=== PATIENT | male | born 1930 | race Caucasian/White ===

== ENCOUNTER 2017-03-15 21:02 | Emergency (ER) | payer MEDICARE, MEDICAID ==
[~2017-03-15] VITALS: Ht 172.7 cm; Wt 53.2 kg
[~2017-03-15 21:02] MED LIST: HYDR-4150 PO; PRE20 PO
[2017-03-15 21:07] VITALS: BP 129/69; PULSE 79; RESP 16; O2SAT 95
--- NOTE | 2017-03-15 21:46 | ED.REPORT ---
HPI-Chest Pain 40 and Over Date of Service Mar 15, 2017 ED Provider: Dr. Darrel Farmer MD An 86 year old male with a history of hydronephrosis s/p left nephrectomy (1958 ) presents to the ED with chest pain that began at 1000 this morning. The pain in his chest is exacerbated by inspiration and deep breath. His pain does not radiate anywhere outside of his chest. He began to experience significant neck pain this morning and took 1 hydrocodone for the pain with little relief. The patient also endorses recent chills, fatigue and generalized weakness that are worse than his baseline. Patient reports experiencing right hand pain secondary to a skin tear that occurred last week and is currently taking cephalexin. He denies any recent nausea, vomiting, cough, fever, extremity swelling, or one- sided weakness/numbness. Nursing Notes Stated Complaint: CHEST PAIN AND RIGHT HAND PAIN Chief Complaint: Chest Pain Nursing Notes Reviewed: Yes Allergies: Coded Allergies: prednisone (Verified Allergy, Mild, BODY ACHES, 03/15/17) atorvastatin (Verified Adverse Reaction, Unknown, body aches, 01/12/15) Scheduled Famotidine (Pepcid) 20 Mg Tablet 20 MG PO BID Prednisone (PredniSONE) 20 Mg Tablet 20 MG PO DAILY 3 tabs x4days; 2 tabs x 4days, 1 tab x 4days; 0.5 tabs x4days Scheduled PRN Hydrocodone/Acetaminophen ([place] 5-325 Tablet) 1 Each Tablet 1 EACH PO Q6 PRN PRN For Pain Naproxen (Naprosyn) 500 Mg Tablet 500 MG PO BID PRN PRN For Pain General Time Seen by MD: 21:45 Chief Complaint Chest pain Hx Obtained From: Patient Arrived By: Walk-in Sudden in Onset?: No Onset Occurred: 9 - 12 hours ago Symptom Duration: Since onset Location: : Chest left: Chest right Quality: Painful Radiation: : Does not radiate Severity: Current: Mild Severity: Maximum: Moderate Associated with: Reports: Fatigue, Weakness, Denies: Cough, non-productive, Cough, productive, Cough, with hemoptysis, Fever, Nausea, Numbness/Tingling, Vomiting Pertinent Negative: Pt denies other symptoms Exacerbated by: Deep breath Recent Healthcare: No recent doctor visit, No recent hospitalization Risk Factors )( CAD Risk Stratification Risk factors reviewed )( TAD Risk Stratification Risk factors reviewed )( PE Risk Stratification Risk factors reviewed Past Medical History Past Medical History Chronic hip pain Hydronephrosis Past Surgical History Left kidney removed in 1954 Toe surgeries Family History His father was a heavy smoker and at 53. Mother at 93. Smoking History Former Smoker Social History Alcohol Use: 1-3 per week Drug Use: Denies drug use Other Social History: Good social support, Lives alone, Local resident Ambulatory Status Independent Review of Systems Constitutional: Reports: Chills, Fatigue, Weakness - generalized Cardiovascular: Reports: Chest pain GI: Denies: Nausea, Vomiting Musculoskeletal: Reports: Neck pain, Denies: Extremity swelling Neurologic: Denies: Focal weakness Complete sys rev & neg: except as marked. Physical Exam Initial Vital Signs Vital Signs (First) Date Time Temp Pulse Resp B/P Pulse Ox O2 Delivery O2 Flow Rate FiO2 03/15/17 21:07 36.7 79 16 129/69 95 Room Air 03/16/17 00:05 2 Initial VS: Reviewed Head / Eyes: Atraumatic, Normocephalic, PERRL Neurologic: Alert, Oriented, Nonfocal Psychiatric: Mood/affect normal, Behavior normal, Normal thought content General/Constitutional: Awake, Alert, No acute distress Respiratory / Chest: Atraumatic, Breath sounds = bilat, No respiratory distress RESPIRATORY: Audible rub present; otherwise clear lung sounds Cardiovascular: Heart rate NL, Regular rhythm, Heart sounds NL, Cap refill not delayed, Peripheral circulation NL, Pulses = bilaterally Heart Sounds / Murmur: Positive: Rub present (Audible rub with deep breath over reported area of pain) Abdomen: Atraumatic, Soft, Non-tender Neck: Atraumatic, Supple, No swelling, No midline vertebral tend, No JVD Neck / Muscle Tenderness: Positive: Midline tenderness mid (Left sided tenderness over the trapezius ) Lower Extremity / Pelvis / MS: Atraumatic, Inspection NL, No swelling (no synovitis joint swelling), Neurologic intact, Vascular intact, No edema Skin: Atraumatic, Color NL, Dry SKIN: Cool upper extremities bilaterally Upper Extremity / MS: Atraumatic, Inspection NL, No swelling, Neurologic intact , Vascular intact Interpretation & Diagnostics Lab Results Interpretation Result Diagram: 03/15/17220503/15/17 2206 Test 03/15/17 22:06 03/15/17 22:10 03/15/17 22:30 03/15/17 23:42 White Blood Count 7.9th/mm3 (3.8-10.1) Red Blood Count 4.38mil/mm3 (4.40-5.80) Hemoglobin 13.2g/dL (13.8-17.2) Hematocrit 40.1% (41.0-50.0) Mean Corpuscular Volume 91.6fL (81-100) Mean Corpuscular Hemoglobin 30.1pg (27.0-35.0) Mean Corpuscular Hemoglobin Concent 32.9% (32.0-37.0) Red Cell Distribution Width 13.9% (12.3-15.4) Platelet Count 184bil/L (150-400) Neutrophils (%) (Auto) 72.6% (40-74) Lymphocytes (%) (Auto) 13.5% (14-46) Monocytes (%) (Auto) 12.0% (4-12) Eosinophils (%) (Auto) 1.5% (0-5) Basophils (%) (Auto) 0.3% (0-3) Erythrocyte Sedimentation Rate 4mm/hr (0-30) D-Dimer < 0.50mg/L FEU (<0.50) Sodium Level 139mEq/L (134-144) Potassium Level 4.2mEq/L (3.5-5.2) Chloride Level 99mEq/L (97-108) Carbon Dioxide Level 25mmol/L (18-29) Blood Urea Nitrogen 20mg/dL (8-27) Creatinine 1.29mg/dL (0.76-1.27) Estimat Glomerular Filtration Rate 56mL/min (>59) Glucose Level 86mg/dL (60-99) Calcium Level 9.5mg/dL (8.5-10.1) Total Bilirubin 0.7mg/dL (0.0-1.2) Aspartate Amino Transf (AST/SGOT) 23U/L (0-50) Alanine Aminotransferase (ALT/SGPT) 13U/L (0-44) Alkaline Phosphatase 59U/L (25-160) Total Protein 6.9g/dL (6.4-8.4) Albumin 4.4g/dL (3.4-5.0) Hold Noble Top Tube Received (Received) Magnesium Level 1.9mg/dL (1.6-2.6) Pro-B-Type Natriuretic Peptide 274.2pg/mL (0-486) Urine Color Yellow (YELLOW) Urine Appearance Clear (CLEAR,HAZY) Urine pH 5.5 (5.0-8.0) Urine Specific [place] 1.015 (1.003-1.035) Urine Protein Negativemg/dL (NEG,TRACE) Urine Glucose (UA) Negativemg/dL (NEGATIVE) Urine Ketones Negativemg/dL (NEGATIVE) Urine Occult Blood Negative (NEGATIVE) Urine Nitrite Negative (NEGATIVE) Urine Bilirubin Negative (NEGATIVE) Urine Urobilinogen Normalmg/dL (NORMAL) Urine Leukocyte Esterase Trace (NEGATIVE) Urine RBC 0-2/hpf (0-2) Urine WBC 0-5/hpf (0-5) Urine Epithelial Cells Few/hpf (NONE-MOD) Urine Crystals None seen (NONE SEEN) Urine Bacteria None/hpf (NONE-FEW) Urine Hyaline Casts None/lpf (NONE) Urine Granular Casts None seen (NONE SEEN) Urine Waxy Casts None seen (NONE SEEN) Urine Red Blood Cell Casts None seen (NONE SEEN) Urine White Blood Cell Casts None seen (NONE SEEN) Urine Mucus Present (None Seen) Urine Trichomonas None seen (NONE SEEN) Urine Yeast None (NONE SEEN) Urinalysis Comment None Urine Culture Reflexed Indicated Troponin T 0.010ug/L (0.0-0.011) Point of Care Testing: Troponin normal ECG Interpretation ECG Interpretation: Sinus Rhythm Rate 73 RBBB When compared to prior (01/12/2015) - bradycardia has now resovled Time: 21:39 Interpreted by: ED physician X-Ray Chest Interpretation Chest Xray Interpretation: IMPRESSION: No acute cardiopulmonary findings. Dictated by: Haleigh Gregg M.D. on 03/15/2017 at 22:06 View: Portable Interpretation / Wet Read by: Interpret - Radiologist Re-Eval/Medical Decision Med Decision/Clinical Course 86-year-old with pleuritic chest pain, and an audible pleural rub on exam. X-rays unremarkable, EKG nonacute and unchanged. Troponin negative 2. D-dimer negative. Unlikely pulmonary embolus unlikely DC unlikely cardiac in character. No pneumonia or other explanation. Appears to be a simple viral pleuritis improved already with IV Toradol here. Home with Naprosyn and Pepcid. Follow up with PCP. Return if worse. Time of Eval: 01:29 Patient Status: Condition improved, Pain improved Re-Evaluation/Progress Note: Patient is informed of his reassuring lab work, EKG and chest X-ray. All questions about his results are discussed. Family understands and agrees with the plan to discharge with follow up. Counseled Regarding: Diagnosis, Lab results, Need for follow-up, When/why to return to ED Discharge & Departure Primary Impression: Pleurisy Additional Impression: Non-cardiac chest pain Disposition: Home Discharge Condition All VS Reviewed: Yes Condition: Stable Patient Instructions: Pleurisy (ED) Additional Instructions: There is no evidence of cardiac disease at this time. There was an audible rub with your breathing that suggests an irritation of the lining of the lung. There was no evidence of clot in your blood vessels with a negative d-dimer. Your cardiac enzymes are negative twice. With your doctor in the office. Begin Naprosyn twice daily for the next 5-10 days. Always take Naprosyn with food. Return if any immediate issues. Take Pepcid two tablets daily as long as you are on Naprosyn. Return for any immediate issues, particularly difficulty breathing, different or worsening chest pain, or other new symptoms of concern. Referrals: NOPCP (PCP) Scribe Attestation Portions of this note were transcribed by Lexus Pride. I, Dr. Farmer personally performed the history, physical exam and medical decision-making; I reviewed and confirmed the accuracy of the information in the transcribed note. Signed by: Felipe Carpenter, 03/16/17 0130. Darrel Farmer MD Mar 15, 2017 21:45 LEXUS PRIDE Mar 15, 2017 21:54
--- NOTE | 2017-03-15 22:08 | DRSVH ---
PROCEDURE: X-RAY CHEST ONE VIEW, PORTABLE ([id number]) INDICATIONS: CP TECHNIQUE: One view of the chest was acquired. COMPARISON: None. FINDINGS: Surgical changes and devices: None. Lungs and pleura: No pleural effusions or pneumothorax. Lungs are clear. Mediastinum: Mediastinal contours appear normal. Heart size is normal. Bones and chest wall: No suspicious bony lesions. Overlying soft tissues appear unremarkable. IMPRESSION: No acute cardiopulmonary findings. Dictated by: Haleigh Gregg M.D. on 03/15/2017 at 22:06 Approved by: Haleigh Gregg M.D. on 03/15/2017 at 22:06
[2017-03-15 22:19] LABS: BASOPHILS % (AUTO) 0.3 % (0-3); EOSINOPHILS % (AUTO) 1.5 % (0-5); Mean Corpuscular Hemoglobin 30.1 pg (27.0-35.0); Mean Corpuscular Volume 91.6 fL (81-100); NEUTROPHILS % (AUTO) 72.6 % (40-74); Platelet Count 184 bil/L (150-400)
[2017-03-15 22:42] LABS: TROPONIN T 0.01 ug/L (0.0-0.011)
[2017-03-15 22:52] LABS: Magnesium 1.9 mg/dL (1.6-2.6)
[2017-03-15 23:18] LABS: APPEARANCE,URINE CLEAR (CLEAR,HAZY); COLOR,URINE YELLOW (YELLOW); OCCULT BLOOD,URINE NEGATIVE (NEGATIVE); PH,URINE 5.5 (5.0-8.0); UROBILINOGEN,URINE NORMAL (NORMAL)
[2017-03-15] MEDS ORDERED: Ketorolac 15 mg/mL Inj IVPUSH ONE (23:20)
[2017-03-15 23:28] VITALS: BP 122/65; PULSE 69; RESP 12; O2SAT 92
[2017-03-16 00:05] VITALS: BP 107/55; PULSE 66; RESP 12; O2SAT 100
[2017-03-16] MEDS ORDERED: NAPR500T PO (01:25)
[2017-03-16] MEDS ORDERED: FAMO20T PO (01:25)
[2017-03-16 01:40] VITALS: BP 100/43; PULSE 66; RESP 16; O2SAT 96
[2017-03-17] MEDS ORDERED: NPR500T PO (07:46)
[2017-03-17] MEDS ORDERED: FAMO20TA4 PO (07:46)
== END 2017-03-16 01:42 | disposition home or self-care (01) ==
LOC: SED 21:02
DX: R09.1 Pleurisy (principal); R07.89 Other chest pain; M79.641 Pain in right hand; R53.83 Other fatigue; R53.1 Weakness; Z87.891 Personal history of nicotine dependence; Z88.8 Allergy status to other drugs, medicaments and biological substances
CPT/HCPCS: 36415; 71010; 80053; 81000; 83735; 83880; 84484; 85025; 85378; 85651; 87086; 93005; 96374; 99285; J1885

== ENCOUNTER 2017-03-16 21:47 | Inpatient (IN) | payer MEDICARE, MEDICAID ==
[~2017-03-16] VITALS: Ht 172.7 cm; Wt 55.0 kg
[~2017-03-16 21:47] MED LIST changes: +FAMO20T PO; +NAPR500T PO
[2017-03-16 21:50] VITALS: BP 135/85; PULSE 65; RESP 16; O2SAT 96
[2017-03-16] MEDS ORDERED: Ketorolac 15 mg/mL Inj IVPUSH ONE ×2 (22:15→23:20)
--- NOTE | 2017-03-16 22:16 | ED.REPORT ---
HPI-Chest Pain 40 and Over Date of Service Mar 16, 2017 ED Provider: Darrel Farmer MD The pt is a, 86 y/o male w/ a hx of hydronephrosis presenting to the ED complaining of chest pain onset 4 hours ago. He describes the pain as sharp and radiating to his L shoulder. The pt is also experiencing SOB. He was seen here in the ED last night for pleuritic chest pain. Nursing Notes Stated Complaint: CHEST PAIN Chief Complaint: Chest Pain Nursing Notes Reviewed: Yes Allergies: Coded Allergies: prednisone (Verified Allergy, Mild, BODY ACHES, 03/16/17) atorvastatin (Verified Adverse Reaction, Unknown, body aches, 03/16/17) Scheduled Famotidine (Pepcid) 20 Mg Tablet 20 MG PO BID Prednisone (PredniSONE) 20 Mg Tablet 20 MG PO DAILY 3 tabs x4days; 2 tabs x 4days, 1 tab x 4days; 0.5 tabs x4days Scheduled PRN Hydrocodone/Acetaminophen ([place] 5-325 Tablet) 1 Each Tablet 1 EACH PO Q6 PRN PRN For Pain Naproxen (Naprosyn) 500 Mg Tablet 500 MG PO BID PRN PRN For Pain General Time Seen by MD: 21:49 Chief Complaint Chest pain Hx Obtained From: Patient Arrived By: Walk-in Sudden in Onset?: Yes Onset Occurred: 1 - 4 hours ago Symptom Duration: Since onset Recent Healthcare: No recent hospitalization, Recent doctor visit Similar Sx Previous: Yes Past Medical History Past Medical History Chronic hip pain Hydronephrosis Past Surgical History Left kidney removed in 1954 Toe surgeries Family History His father was a heavy smoker and at 53. Mother at 93. Smoking History Former Smoker Social History Alcohol Use: 1-3 per week Drug Use: Denies drug use Other Social History: Good social support, Lives alone, Local resident Ambulatory Status Independent Review of Systems Respiratory: Reports: Shortness of breath Cardiovascular: Reports: Chest pain Complete sys rev & neg: except as marked. Physical Exam Initial Vital Signs Vital Signs (First) Date Time Temp Pulse Resp B/P Pulse Ox O2 Delivery O2 Flow Rate FiO2 03/16/17 21:50 36.5 65 16 135/85 96 Room Air 03/16/17 23:01 2 Initial VS: Reviewed Head / Eyes: Atraumatic, Normocephalic, PERRL Neck: Supple, Non-tender, Full range of motion Extremities: Vascular intact, Neuro intact, No swelling, No tenderness Skin: Warm, Dry, No cyanosis Neurologic: Alert, Oriented, Nonfocal Psychiatric: Mood/affect normal, Behavior normal, Normal thought content General/Constitutional: Awake, Alert Respiratory / Chest: Atraumatic, Breath sounds NL, Breath sounds = bilat, No respiratory distress, No rales, No rhonchi, No wheezing Chest Wall / Ribs: Positive: Chest tender upper L Cardiovascular: Heart rate NL, Regular rhythm, Heart sounds NL Abdomen: Atraumatic, Soft, Non-tender Interpretation & Diagnostics Lab Results Interpretation Result Diagram: 03/17/17 0515 03/16/17 2200 Test 03/16/17 22:00 03/16/17 23:17 Erythrocyte Sedimentation Rate 8mm/hr (0-30) Sodium Level 136mEq/L (134-144) Potassium Level 4.2mEq/L (3.5-5.2) Chloride Level 97mEq/L (97-108) Carbon Dioxide Level 23mmol/L (18-29) Blood Urea Nitrogen 24mg/dL (8-27) Creatinine 1.34mg/dL (0.76-1.27) Estimat Glomerular Filtration Rate 53mL/min (>59) Glucose Level 95mg/dL (60-99) Calcium Level 9.5mg/dL (8.5-10.1) Magnesium Level 1.9mg/dL (1.6-2.6) Total Bilirubin 0.7mg/dL (0.0-1.2) Aspartate Amino Transf (AST/SGOT) 21U/L (0-50) Alanine Aminotransferase (ALT/SGPT) 13U/L (0-44) Alkaline Phosphatase 68U/L (25-160) Pro-B-Type Natriuretic Peptide 531.3pg/mL (0-486) Total Protein 7.2g/dL (6.4-8.4) Albumin 4.3g/dL (3.4-5.0) Hold [place] Top Tube Received (Received) Urine Color Yellow (YELLOW) Urine Appearance Clear (CLEAR,HAZY) Urine pH 6.0 (5.0-8.0) Urine Specific [place] 1.010 (1.003-1.035) Urine Protein Negativemg/dL (NEG,TRACE) Urine Glucose (UA) Negativemg/dL (NEGATIVE) Urine Ketones Negativemg/dL (NEGATIVE) Urine Occult Blood Negative (NEGATIVE) Urine Nitrite Negative (NEGATIVE) Urine Bilirubin Negative (NEGATIVE) Urine Urobilinogen Normalmg/dL (NORMAL) Urine Leukocyte Esterase Negative (NEGATIVE) Urine RBC 0-2/hpf (0-2) Urine WBC 0-5/hpf (0-5) Urine Epithelial Cells Occasional/hpf (NONE-MOD) Urine Crystals None seen (NONE SEEN) Urine Bacteria None/hpf (NONE-FEW) Urine Hyaline Casts None/lpf (NONE) Urine Granular Casts None seen (NONE SEEN) Urine Waxy Casts None seen (NONE SEEN) Urine Red Blood Cell Casts None seen (NONE SEEN) Urine White Blood Cell Casts None seen (NONE SEEN) Urine Mucus None seen (None Seen) Urine Trichomonas None seen (NONE SEEN) Urine Yeast None (NONE SEEN) Urinalysis Comment None Urine Culture Reflexed Not indicated Hold Urine Received (Received) ECG Interpretation ECG Interpretation: Rate 63 NSR RBBB and LPFB Time: 22:06 Interpreted by: ED physician X-Ray Chest Interpretation Chest Xray Interpretation: Impression: No acute findings View: Portable, 1 view Interpretation / Wet Read by: Wet read ED physician Re-Eval/Medical Decision Med Decision/Clinical Course 86-year-old man presents again with worsening pleuritic chest pain on the left. He was seen last night with similar pain of lesser intensity, and it evanescent pleural rub was observed at that time. No rub is heard tonight. 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 These appear to be nonanatomic in consistent more with pericarditis. Reviewed with cardiology, and they agreed is not a STEMI. He is admitted now for completion of rule out protocol and for echocardiography this morning. Consider stress testing once he is ruled out and after echo. Time of Eval: 00:11 Re-Evaluation/Progress Note: Pt rechecked. Informed pt of need for admission. Pt understands and agrees with plan for admission. All questions addressed. Consultation #1: Referral / Consult Name: Cadence Cooper MD Consulted With: Cardiology Call Returned at: 22:21 Note: Discussed pt's case. Dr. Cooper recommended administering Nitroglycerin. Consultation #2: Referral / Consult Name: Gabbie Lau DO Consulted With: Hospitalist Call Returned at: 23:25 Assembly Inspector Helper: Will see patient, Agrees with eval, Agrees with plan, Accepts admit Counseled Regarding: Diagnosis, Lab results, Need for admission Discharge & Departure Primary Impression: Pericarditis Pericarditis type: unspecified type Chronicity: unspecified Qualified Code : I31.9 - Disease of pericardium, unspecified Additional Impression: Chest pain Chest pain type: unspecified Qualified Code: R07.9 - Chest pain, unspecified Disposition: ADMITTED TO HOSPITAL Discharge Condition All VS Reviewed: Yes Condition: Stable Referrals: [facility] (PCP) Scribe Attestation Portions of this note were transcribed by Robb Gonzalez. I, Dr. Farmer personally performed the history, physical exam and medical decision-making; I reviewed and confirmed the accuracy of the information in the transcribed note. Signed by : Felipe Kuhn, 03/16/17 and 2222. copies to: [facility] Darrel Farmer MD Mar 16, 2017 22:16 Robb Gonzalez Mar 16, 2017 22:22
[2017-03-16 22:28] LABS: BASOPHILS % (AUTO) 0.3 % (0-3); MONOCYTES % (AUTO) 17.7 % (4-12); Mean Corpuscular Hemoglobin 31.1 pg (27.0-35.0); Mean Corpuscular Volume 91.7 fL (81-100); NEUTROPHILS % (AUTO) 61.2 % (40-74); Platelet Count 184 bil/L (150-400)
[2017-03-16 22:41] LABS: ERYTHROCYTE SEDIMENTATION RATE 8 mm/hr (0-30)
[2017-03-16 22:45] LABS: TROPONIN T 0.01 ug/L (0.0-0.011)
[2017-03-16 22:56] LABS: Magnesium 1.9 mg/dL (1.6-2.6)
[2017-03-16 23:01] VITALS: BP 97/60; PULSE 67; RESP 20; O2SAT 100
[2017-03-16 23:34] VITALS: BP 107/61; PULSE 62; RESP 16; O2SAT 100
[2017-03-17] VITALS (20 sets, daily range): BP systolic 65–124; BP diastolic 32–73; PULSE 60–128; RESP 15–30; O2SAT 97–100
[2017-03-17] MEDS ORDERED: Ondansetron 2 mg/mL 2 mL Inj IVPUSH PRN ×2 (00:15→01:00)
[2017-03-17] MEDS ORDERED: Alum-Mag Hydrox-Simeth 30 mL Suspension PO PRN ×2 (00:15→01:00)
[2017-03-17 01:00] LABS: APPEARANCE,URINE CLEAR (CLEAR,HAZY); COLOR,URINE YELLOW (YELLOW); OCCULT BLOOD,URINE NEGATIVE (NEGATIVE); UROBILINOGEN,URINE NORMAL (NORMAL)
[2017-03-17] MEDS ORDERED: Polyethylene Glycol (PEG) 17 Gm Powder PO PRN (01:00)
[2017-03-17] MEDS ORDERED: Senna-Docusate 8.6-50 mg Tablet PO PRN (01:00)
[2017-03-17] MEDS ORDERED: 0.9% Sodium Chloride 500 ML IV ONE (01:40)
--- NOTE | 2017-03-17 01:41 | PCM.HPMED ---
Subjective Date of Service Mar 17, 2017 Primary Provider: Admitting Physician: Gabbie Lau DO [facility] Attending Physician: Gabbie Lau DO Admit Status: From the Emergency Department Chief Complaint: pain with breathing History of Present Illness: Berhane is an 86 yo man with history of Hydronephrosis s/p Left Nephrectomy who presents to the ED for complaints of chest pain with deep breaths. Patient was evaluated at this ER last night for substernal CP with deep breaths also. After a thorough workup, he was discharged home with Naproxen and pepcid on suspicion of viral pericarditis. Patient reports that when he returned home, he continued to have intermittent episodes of moderate pleuritic chest pain. He also noted that the chest pain move to more of his upper left chest region and also radiated occasionally to his left shoulder. He gets somewhat short of breath due to the pain, which he is unable to qualify very well. He has never had chest pain like this prior and denies any cardiac history. He denies any recent illnesses, fevers, JOSE, diarrhea, or rashes. He did take some of his neighbor's NSAID, which helped the pain, but when the pain recurred and was more located in his upper left chest, he became worried and returned for evaluation. Prior to this, he was not taking any medications regularly. He does report a superficial laceration on his right hand for which he was taking Cephalexin since a week ago. He also notes some decrease in his energy levels and some gradual weight loss in the last few years. He currently lives in a camper at [place] and goes to [place] every winter. At the ER today, his vital signs were stable and WNL. He did have an EKG that was remarkable for old RBBB, LPFB, and non specific ST changes that was new since the EKG yesterday. Cardiology was consulted and recommended echocardiography for further assessment. Review of Systems: Comprehensive review of systems was conducted with the patient and found to be negative except as noted above in HPI. Allergies Coded Allergies: prednisone (Verified Allergy, Mild, BODY ACHES, 03/16/17) atorvastatin (Verified Adverse Reaction, Unknown, body aches, 03/16/17) Home Medications Naproxen Cephalexin PMH Left nephrectomy secondary to hydronephrosis in 1959 Chronic Hip Pain Distant history of head trauma Surgical History nephrectomy as above Family History Father with heart disease, mother with diabetes Social History Occupation: Retired, [employer] patient Hx Alcohol Use: Yes (Rarely drinks beer) Hx Substance Use: No Smoking Status: Former Smoker Living Arrangement: with Family Exam Vital Signs Vital Sign - Last Date Time Temp Pulse Resp B/P Pulse Ox O2 Delivery O2 Flow Rate FiO2 03/16/17 23:34 62 16 107/61 100 Room Air 03/16/17 23:01 2 03/16/17 21:50 36.5 Exam General: Thin elderly male who appears in mild pain HEENT: Normocephalic, atraumatic. External ears without defect. Pupils equal, round, and reactive to light and accommodation. Anicteric sclerae, Oropharynx free of erythema and cobble stoning with moist mucosa. Neck: Supple with full range of motion. No jugular venous distension. No bruits. Cardiovascular: Regular rate and rhythm with soft systolic murmur and soft rub over LSB Pulmonary: Clear to auscultation bilaterally with no crackles, wheezes, or rhonchi. Normal respiratory effort with no use of accessory muscles. No pain to palpation Abdomen: Bowel tones present. Soft, nontender, nondistended. No hepatosplenomegaly or masses appreciated. Extremities: No clubbing, cyanosis, edema, or lymphadenopathy appreciated. Skin: Normal temperature, turgor, and texture; no rash, ulcers, or subcutaneous nodules appreciated. Neurological: Cranial nerves grossly intact. Normal muscle strength, tone, and bulk. Normal gait, no focal weakness Psychiatric: Normal mood and affect. Alert and oriented to person, place, and time, cooperative Lab and Diagnostics Result Diagram: 03/16/17219903/16/172199 Assessment & Plan 86 yo man with history of Hydronephrosis s/p Left Nephrectomy who presents to the ED for complaints of pleuritic CP x 2 days. Pleuritic Chest Pain, Acute, Present on Admission, worsening Patient's presentation is suspicious for acute pericarditis, although etiology is uncertain. He had d-dimer and troponins yesterday that were both negative. His EKG today is slightly more concerning, but cardiology feels the ST changes likely represents evolving Pericarditis. Will obtain Echocardiogram with possible stress test [facility] on telemetry for CV monitoring Cardiology consulted, will evaluate pt in the AM. Will trend Troponins due to change in Chest pain location Will check ESR/CRP and repeat EKG in the AM Start scheduled Naproxen and Colchicine to manage pain. Discontinue if felt not to be due to pericarditis. Elevated Creatinine, POA Cr of 1.34 on admission, mildly worse from yesterday, likely due to dehydration. Will hydrate and continue to monitor closely due to usage of NSAIDs Hip pain, chronic, POA -acetaminophen PRN Tylenol prn fever/pain Zofran prn nausea Bowel Regimen prn constipation CODE STATUS: Full resuscitation Patient is admitted under observation status with expected length of stay less than 2 minutes due to severity of presenting symptoms, risk of adverse events, and complexity of treatment plan. Pain Evaluation: Adequate Pain Control VTE Prophylaxis: Sub-Q Enoxaparin Resuscitation Status: CPR: Attempt Resuscitation Attending Statement The patient was seen and examined together with house staff on 03/17/2017 and I agree with the history, exam and plan as outlined in the note above. Carlos Carlos DO Mar 17, 2017 00:12 Gabbie Lau DO Mar 17, 2017 05:19
[2017-03-17 05:43] LABS: BASOPHILS % (AUTO) 0.2 % (0-3); EOSINOPHILS % (AUTO) 1.5 % (0-5); MONOCYTES % (AUTO) 12.5 % (4-12); Mean Corpuscular Hemoglobin 30.2 pg (27.0-35.0); Mean Corpuscular Volume 91.1 fL (81-100); Platelet Count 148 bil/L (150-400)
[2017-03-17] MEDS: HYDROcodone-APAP 5-325 mg Tablet PO PRN ×2 (05:45→17:30)
--- NOTE | 2017-03-17 06:45 | NUR ---
Admit Pt arrived from [place] [facility] [id number] approx at 0020. Pt C/O left side chest pain that get worse with deep breathing. 12 lead obtained. Slight changes noted in leads III and aVF. Nitro SL given with some relief. Dr. Carlos notified with all findings. Received new order for Naproxen. VSS. Pt up walking to BR without worsening chest pain. No overt complications noted.
[2017-03-17] MEDS ORDERED: FAMO20TA4 PO (07:46)
[2017-03-17] MEDS ORDERED: NPR500T PO (07:46)
[2017-03-17] MEDS: Pantoprazole 20 mg ER24 Tablet PO SCH ×2 (07:56→17:30)
[2017-03-17] MEDS: Sodium Chloride LOK Flush 10 mL Syringe IVFLUSH SCH ×3 (07:58→23:29)
[2017-03-17] MEDS ORDERED: MeTOProlol 1 mg/mL 5 mL Inj IV ONE (08:55)
--- NOTE | 2017-03-17 09:07 | NUR ---
Tachycardia and cp Tele notified the RN that pts HR was into 130s to 140s. Pt was in room ambulating and stated that he felt terrible and that he had 10/10 inspiration pleuritic cp. notified. VS: BP 106/57 P 104 RR 20 Sp02 94%. Stat ekg ordered. After ekg per MD order 5mg Lopressor IVP administered and one dose of 0.4mg nitro. Pt stated that his cp decreased to a 6 out 10. MP30 on pt. continue to monitor Addendum: 03/17/17 at 1013 by RADHA DO RN BP steadily decreased down to 65/25 with pulse of 128 pt also went into AFIB. Per order ran 1L wide open of NS, Bp increased to 85/51 but then dropped back down to 76/57 Pulse 108. Pt was then transferred CCU rm 2015. report given to Naty Ortiz.
--- NOTE | 2017-03-17 09:43 | DRSVH ---
PROCEDURE: X-RAY CHEST ONE VIEW, PORTABLE ([id number]) INDICATIONS: cp TECHNIQUE: One view of the chest was acquired. COMPARISON: 03/15/2017 FINDINGS: Surgical changes and devices: None. Lungs and pleura: No pleural effusions or pneumothorax. Lungs are clear. There is apparent pulmonar y hyperexpansion which could reflect COPD. Mediastinum: Mediastinal contours appear normal. Heart size is normal. Bones and chest wall: No suspicious bony lesions. Overlying soft tissues appear unremarkable. IMPRESSION: 1. Possible chronic obstructive pulmonary disease. 2. No acute cardiopulmonary abnormality or interval change. Dictated by: Ricky Romero M.D. on 03/17/2017 at 9:40 Approved by: Ricky Romero M.D. on 03/17/2017 at 9:41
[2017-03-17] MEDS ORDERED: Heparin 25K Unit/500mL 0.45 NS 25,000 UNIT in IV Premix 1 EACH IV SCH (11:15)
[2017-03-17] MEDS ORDERED: Heparin 5,000 Unit/mL Inj IVPUSH PRN (11:15)
[2017-03-17] MEDS ORDERED: Amiodarone 150 mg/100 mL D5W 150 MG in IV Premix 1 EACH IV ONE (11:15)
[2017-03-17] MEDS ORDERED: Amiodarone 360 mg/200 mL D5W 360 MG, Filter, Taxol 14256-28 1 EACH in IV Premix 1 EACH IV SCH (11:15)
[2017-03-17] MEDS ORDERED: Amiodarone 360 mg/200 mL D5W Premix IV ONE (11:46)
[2017-03-17] MEDS ORDERED: IV Premix 1 EACH IV ONE (11:46)
--- NOTE | 2017-03-17 12:24 | DRSVH ---
[facility] [address] [place] [address] Echocardiogram Report Name: ESTEFANIA FLOREZ CStudy D ate: 03/17/2017 Height: 68 in Hospital Exam Location: [facility] Weight: 123 lb Gender: Male BSA: 1.7 m2 : 1930 Age: 86 yrs BP: 93/63 mm Hg Reason For Study: Pericarditis Ordering Physician: [facility] Performed By: Gila Cardozo Referring Physician: Henry Smith Interpretation Summary Technically difficult study. The patient was in atrial fibrillation with heart rates between 81-140 bpm during the exam. The left ventricular cavity is small. Borderline concentric left ventricular hypertrophy with grossly normal ejection fraction. Mildly dilated right ventricle wtih normal systolic function. Moderately dilated right atrium. No obvious valvular abnormality. No pericardial effusion. Procedure: A two-dimensional transthoracic echocardiogram with color flow and Doppler was performed. The study quality was technically difficult. Most of the acoustic windows were suboptimal, but the best imaging was obtained from the subcostal window. Comparison is made with the echocardiogram of 02/15/2015. The patient was in atrial fibrillation with heart rates between 81 -140 bpm during the exam. Left Ventricle: The left ventricular cavity is small. There is borderline concentric left ventricular hypertrophy. The left ventricular ejection fraction is grossly normal. There are no obvious focal wall motion abnormalities noted but poor endocardial definition reduces the sensitivity for the detection of such. Diastolic function could not be accurately assessed due to unobtainable data. Right Ventricle: The right ventricle is mildly dilated. The right ventricular systolic function is normal. Atria: The left atrium is not well visualized. The right atrium is moderately dilated. There is no Doppler evidence for an interatrial shunt. Mitral Valve: The mitral valve is not well visualized. The mitral valve is grossly normal. Aortic Valve: The aortic valve is not well visualized. The aortic valve opens well. There is at least trace aortic regurgitation. Tricuspid Valve: The tricuspid valve leaflets are thin and pliable. There is mild tricuspid regurgitation. The right ventricular systolic pressure is estimated at least 25 mmHg assuming a right atrial pressure of 8 mm Hg. Pulmonic Valve: The pulmonic valve is not well visualized. Great Vessels: The aortic root is mildly dilated. The ascending aorta could not be visualized. The aortic arch could not be visualized. The IVC is of normal diameter and collapses less than 50% with a sniff. This suggests a right atrial pressure of 8 mm Hg. Pericardium/ Pleura There is no pericardial effusion. The pericardium appears normal. There is no pleural effusion. MMode/2D Measurements & Calculations LVIDd: 3.8 cm IVC diam: 2.1 cm RA long axis LVOT diam LVIDs: 2.3 cm FS: 39.3 % RA area AoV Opening IVSd: 0.98 cm LVPWd: 0.91 cm : 22.4 cm Ao root diam RA vol: 73.6 ml: 4.0 cm RA : 44.3 mm2 LV navarro. diameter/BSA LV sys. diameter/BSA RVD1 (basal) TAPSE: 2.1 cm (cm/m^2): 2.3 (cm/m^2): 1.4 Doppler Measurements & Calculations TR max lanie: 204.4 cm/sec MV V2 mean: 46.0 cm/sec PA V2 mean: 38.0 cm/sec TR max P.7 mmHg MV mean P.94 mmHg PA V2 max: 58.7 cm/sec MV V2 VTI: 8.1 cm PA mean P.72 mmHg PA Accel Time: 0.13 sec Electronically signed by: Mitchell Borrego on Reading Physician:03/17/2017 12:23 PM
[2017-03-17] MEDS ORDERED: 0.9% Sodium Chloride 250 ML IV ONE (12:50)
--- NOTE | 2017-03-17 13:43 | NUR ---
Spoke with Ashly in patient access at [facility] patient is non service connected and holds MCR A & B. Patient see Rajesh Philippe with the [employer] [facility] at [facility]
[2017-03-17] MEDS: 0.9% Sodium Chloride 1,000 ML IV SCH ×2 (13:50→22:45)
[2017-03-17] MEDS ORDERED: predniSONE 20 mg Tablet PO SCH (13:55)
[2017-03-17] MEDS ORDERED: Albumin 25% 25 GM in IV Premix 1 EACH IV SCH (14:30)
[2017-03-17] MEDS ORDERED: 0.9% Sodium Chloride 1,000 ML IV ONE (15:00)
--- NOTE | 2017-03-17 15:09 | CONS ---
[address] [address] CARDIOLOGY INPATIENT CONSULTATION REPORT PATIENT: ESTEFANIA FLOREZ : 1930 MR#: [id number] ADMIT: 03/17/2017 JOB ID: [id number] DATE OF SERVICE: 03/17/2017 REASON FOR CONSULTATION: Chest pain, possibly secondary to pericarditis. HISTORY OF PRESENT ILLNESS: This is a very pleasant, 86-year-old gentleman with history of hydronephrosis, status post left nephrectomy in the past, who presented with pleuritic-type chest pain to ER at [facility] and was admitted on 03/16/2017. Information was provided by the patient and by his sister. The patient is a little challenging historian. The patient states that on March 15, 2017, he started experiencing from the beginning the slight chest discomfort in the mid substernal area, not radiating anywhere. Chest pain was with and without physical activity and from the beginning was dull, and it was not aggravated with walking but was aggravated with deep breathing. Pain was on and off from the beginning. He did not feel dizzy or lightheaded. The chest discomfort got worse with time and eventually it became constant and was aggravated with deep breathing. It became more prominent and he went to ER. On admission on EKG he was in sinus rhythm with heart rate 73 beats per minute. He had a known right bundle branch block and no ischemic changes on EKG. He was hemodynamically stable with a blood pressure 122/65 mmHg. He had negative troponins. His D-dimer was negative. He was slightly anemic and he had normal electrolytes and he had elevated creatinine of 1.29, his baseline creatinine per medical records, it looks like it is 1.8-1.1. X-ray showed no acute cardiopulmonary findings. It was considered that the patient possibly had a simple viral pericarditis so he was advised to start Naprosyn and pantoprazole, and he was discharged home. He came home at around 2:30 a.m. and around 4:30 a.m. his chest pain got worse. It again was pleuritic in nature and it was much more intense, stabbing, and now it was not only in the middle of his chest but also radiating more to the left towards left shoulder. He did not feel nauseated or clammy, did not have any shortness of breath. Did not feel dizzy or lightheaded and did not have palpitations. He was given two tablets of Aleve which actually patient tells me that eliminated chest pain totally, but then at noon, he again developed the same quality and intensity pain as I described above. This time, his sister gave him Naprosyn which the patient tells me that did not help and the pain was constant and he was brought back to [facility] emergency department. On admission on EKG again he was in sinus rhythm with heart rate 63 beats per minute. Again with right bundle branch block and no ischemic changes. His troponins continued to be negative. His creatinine on admission was worse He continues having intense chest pain which is pleuritic in origin and he tries to breath shallow. Otherwise, he does not have signs or symptoms of nocturnal pulmonary congestion. On admission, he was started on IV fluid. Because of suspicion of patient having pericarditis, the patient was started on colchicine and Naproxen. Early in the morning around 2 a.m 03/17/2017, the patient developed 1st episode of what looks like atrial fibrillation with heart rate in 120s. Then, he spontaneously went back into sinus rhythm. He had a couple more episodes with heart rate going to one-teens and then at 8 a.m. in the morning he developed new bout of atrial fibrillation, with heart rate 1st in 130s, then going in 140s and 150s and, at some point, he thinks 200 beats per minute. He was given metoprolol 5 mg IV which brought heart rate down, and at some point actually, he converted briefly to sinus rhythm and then again went into atrial fibrillation with heart rate in 130s up to 150s. The patient stayed asymptomatic, never felt any palpitations. Never felt presyncopal or syncopal. Did not have any shortness of breath, he had persistent, sharp, pleuritic chest pain that he was constantly experiencing and even now on presentation. His blood pressure has been on low side. He has been hypotensive. This is actually new onset atrial fibrillation for him. The patient does not have any history of atrial fibrillation. He does not have history of documented coronary artery disease. He has a history of hypertension. He recently had a superficial laceration on his hand for which he was taking cephalexin. He denies any recent sickness or sick contacts. He denies having any recent fevers or chills. Denies, in the past, having history of any chest pain, or dyspnea on exertion or signs of nocturnal pulmonary congestion. He has a remote history of tobacco smoking, quit smoking in 1959. Before that, he did not smoke much. He drinks alcohol, not frequently; one bottle of beer maybe couple of times a week. He denies recreational drug use. He does use periodically hydrocodone for his hip and shoulder pain. He has a positive family history of coronary artery disease in his brother, who had a heart attack at age 30 and 40s twice. Father who had a heart attack in age 50s. REVIEW OF SYSTEMS: A 12 point of review of systems is negative except the one mentioned in HPI. HOME MEDICATIONS: Naproxen. PAST MEDICAL HISTORY: Left nephrectomy secondary to hydronephrosis in 1958. Chronic hip pain. Distant history of head trauma. SURGICAL HISTORY: Nephrectomy in 1958. EXAM: Vital signs: Blood pressure when checked by myself was 100/55 mmHg, temperature 36.4 Celsius, pulse 89 beats per minute. His pulse oximetry is saturation 99% on 1.5 L O2. General: In no acute distress, comfortably lying in the bed. Talking in full sentences, compliant. EENT: Mucous membranes a little dry, sclerae anicteric. Neck supple. No thyromegaly. Pulm: Decreased breathing sound sounds bilaterally, no crackles, no wheezing. Cardiac: Irregularly irregular rhythm, no murmur appreciated. JVP is not elevated. Heart sounds are distant. Abdomen: Nontender with palpation. Soft. Extremities: No lower extremity edema. Skin: Dry and warm, no rash. No clubbing. Neuro: Alert and oriented x3. No gross abnormalities. LABS: Labs from March 17, 2017: Sodium 139, potassium 4.4, chloride 104, carbon dioxide 18, BUN 25, creatinine 1.23. Estimated GFR 59. Glucose 93, calcium 8.5. Troponin is negative. He has an elevated C-reactive protein; from yesterday, 6.0, and from today, 5.6. We did a D-dimer today which again is negative It is less than 0.5. White blood cells 6.5, red blood cells 3.81. Hemoglobin 11.5, hematocrit 34.7, platelet 148. Chest x-ray from March 16 showed possible chronic obstructive pulmonary disease. No acute cardiopulmonary abnormality or interval changes. He had an echo done today on March 17, 2017, which was technically difficult study and the patient had an atrial fibrillation with heart rate between 81-140 beats per minute during the exam. He has a borderline concentric left ventricular hypertrophy with grossly normal ejection fraction, mildly dilated right ventricle with normal systolic function. Moderately dilated right atrium. No obvious valvular abnormality and no pericardial effusion. TELEMETRY: On telemetry at 8 a.m. in the morning, had atrial fibrillation with RVR with heart rate 130, up to 140s-150s, and at some point, he hit 200 beats per minute and had metoprolol 5 mg IV, and after that he has been having heart rate in the 130s up to 150s. Periodically he goes spontaneously to sinus rhythm with a heart rate 80s, 90s, then he goes back periodically to atrial fibrillation with RVR. ASSESSMENT AND PLAN: This is an 86-year-old gentleman with no prior documented history of coronary artery disease or atrial fibrillation and with a history of hydronephrosis, status post left nephrectomy many years ago, who was admitted with pleuritic chest pain in the setting of possible acute pericarditis and later developed new onset atrial fibrillation with RVR. He has been also hypotensive and noted to have decreased kidney function which improved after hydration suggesting that patient was dehydrated. #Pleuritic chest pain secondary to acute pericarditis. He has elevated C- reactive protein. We will start him on colchicine 0.6 mg b.i.d. which he needs to take up to three months. I would try and avoid with him NSAIDs because he has one kidney, he is status post nephrectomy, and we would like to be careful to avoid impairing the kidney function. Instead, we will start him on prednisone 20 mg daily which he can take for two weeks. #New onset paroxysmal atrial fibrillation with RVR. The patient periodically has episodes of atrial fibrillation and then spontaneously breaks back to sinus rhythm. At this point, I would avoid anticoagulating on heparin because of his pericarditis. Would start him on amiodarone 24-hour protocol to maintain him in sinus rhythm. #Hypotension: The patient has been hypotensive, likely secondary to dehydration which explains his decreased kidney function, which improved with hydration. Atrial fibrillation with RVR also could be contributing to his hypertension. #Decreased kidney function, likely secondary to dehydration. It improved after hydration. We will continue hydrating the patient. Also will give a bolus of normal saline 250 mL and then continue 100 mL/h for 10 hours. The case was discussed with doll repairer, Dr. Barksdale, who agreed with assessment and plan. [facility]
--- NOTE | 2017-03-17 16:39 | NUR ---
Case Management: IMM explained to patient at 1555, all questions answered. Signed original placed in chart, copy given to patient. Iram Prado RN
--- NOTE | 2017-03-17 17:06 | NUR ---
Tachycardia/CP Pt arrived to CCU at aprox 1000. HR low 100s to 130s, per cardiology rhythm is Afib vs SVT. Pt received total of 2.2L NS bolus this shift, per cardiology. Pt spontaneously converted to SR at aprox 1200, Dr. Weston and RAHEL aware. Currently pt NSR with RBBB, rate 72. Pt Reports improvement in inspiratory left-sided CP without any targeted interventions to relieve pain. Initially was 10/10, now 5/10 and tolerable.
--- NOTE | 2017-03-17 18:33 | CONS ---
[address] [address] CONSULTATION REPORT PATIENT: ESTEFANIA FLOREZ : 1930 MR#: [id number] ADMIT: 03/17/2017 JOB ID: [id number] DATE OF SERVICE: 03/17/2017 REQUESTED BY: Dr. Jalloh. REASON FOR EVALUATION: Chest discomfort and hypotension. I saw and examined the patient. Please see Dano Alberts's notes for detail. IMPRESSION: 1. Acute pericarditis. 2. Hypotension due to volume depletion. 3. Recent onset atrial fibrillation. 4. Status post left nephrectomy in 1983. PLAN: I would treat his acute pericarditis with steroid and colchicine. I would like to avoid high-dose NSAID due to single kidney and his advanced age. The cause of his hypotension is due to volume depletion. He should respond to intravenous fluid replacement. I would try to maintain the patient in sinus rhythm with intravenous amiodarone. I would not start him on IV heparin at this time due to ongoing pericarditis. [facility]
--- NOTE | 2017-03-17 18:54 | PCM.PNMED ---
Subjective Date of Service Mar 17, 2017 Subjective Patient is tachycardic, hypotensive and having a lot of pleuritic pain, worsened with deep breathing, can breath better if he is sitting up. He states that his pain has been ongoing for 4 days. He claims that he is always very active. He has not been drinking or eating much for the last 4 days due to pain. He cannot recall having any recent viral infections. He recalls seeing a pipe processor a year ago across the road from here does not recall his doctor's name. He plans to the [facility] system and sees Dr. Morales Exam Vital Signs Vital Sign - Last Date Time Temp Pulse Resp B/P Pulse Ox O2 Delivery O2 Flow Rate FiO2 03/17/17 09:15 94 18 77/32 03/17/17 08:30 Supplement Oxygen 03/17/17 07:54 36.4 99 1.50 Intake and Output 03/16/17 03/16/17 03/17/17 Cumulative From/Thru 15:00 23:00 07:00 03/16/17 21:50 - 03/17/17 06:39 Intake Total 700 ml 700 ml Output Total 700 ml 700 ml Balance 0 ml 0 ml Intake Oral 200 ml 200 ml IV Total 500 ml 500 ml Output Urine Total 700 ml 700 ml # Voids 1 1 # Bowel Movements 1 1 Exam general: mentating well, in apparent distress HEENT: NCAT Heart: Regular, no s3/s4 Lungs: Mild wheezing on LL, no other abn sounds Exr: 1+ pitting edema Abd: Non tender to palpation Psych mildly anxious Neuro: No focal deficits IVs and Medications Medications Reviewed: Medications were reviewed in detail Lab and Diagnostics Result Diagram: 03/17/1715 03/17/17 0515 Assessment & Plan 86 yo man with history of Hydronephrosis s/p Left Nephrectomy who presents to the ED for complaints of pleuritic CP x 2 days. Pleuritic Chest Pain of unknown etiology, Acute, Present on Admission, worsening --Patient's presentation is suspicious for acute pericarditis, although etiology is uncertain. He had d-dimer and troponins yesterday that were both negative. His EKG today is slightly more concerning, but cardiology initially felt ST changes likely represents evolving Pericarditis. Echo cardiogram ruled out pericarditis --Heart Healthy Diet -- Place on telemetry for CV monitoring --Will trend Troponins due to change in Chest pain location -- Discontinued Naproxen and Colchicine as echo revealed no concern for pericarditis, NSAID s are not helping him any ways -- ASk for a stat echo:"The patient was in atrial fibrillation with heart rates between 81-140 bpm during the exam.The left ventricular cavity is small. Borderline concentric left ventricular hypertrophy with grossly normal ejection fraction.Mildly dilated right ventricle wtih normal systolic function. Moderately dilated right atrium.No obvious valvular abnormality. No pericardial effusion." -- Cardiology is consulted, Dr. Weston is aware, will see the pt. -- Sisters differ in code status, Iram will be POA, will discuss further with patient\\ -- 1 dose of nitro, 1 mg morphine iv are given this am, prior to transfer to CCU for concern for afib, hypotension, and pleuritic pain Hypotension, acute resolved -- 1 Liter bolus improved blood pressures. -- Continue NSS 100 cc/hr -- Patient is transferred to CCU room #16, blood pressures normalized. Atriaol fibrillaiton, acute resolved -- 5 mg IV metoprolol is given in 3003 -- New onset, tachycardia and appears to be due to his pain -- We will wait for cardiology recommendations prior to starting rate control and our anticoagulation: Cardiology tried to start amiodarone drip, but pt converted to NSR Elevated Creatinine, POA improving -- Cr of 1.34 on admission, mildly worse from yesterday, likely due to dehydration. -- Will hydrate and continue to monitor closely due to usage of NSAIDs Hip pain, chronic, POA -acetaminophen PRN Tylenol prn fever/pain Zofran prn nausea Bowel Regimen prn constipation CODE STATUS: Full resuscitation, sisters differ with this. SisterMyra Walden says that she will be his POA and he will discuss CODE STATUS with patient because she feels that patient did not quite understand what CODE STATUS meant. At the present time patient is unable to answer these questions but he is okay with his family are sisters addressing this Patient is admitted under observation status with expected length of stay less than 2 minutes due to severity of presenting symptoms, risk of adverse events, and complexity of treatment plan. Pain Evaluation: Pain not Controlled VTE Prophylaxis: Sub-Q Enoxaparin Resuscitation Status: CPR: Attempt Resuscitation Time spent 45 minutes Trinh Jalloh DO Mar 17, 2017 10:14
[2017-03-17] MEDS ORDERED: Heparin 5,000 Unit/mL Inj SUBQ SCH (23:59)
[2017-03-18 00:30] VITALS: BP_SYST 92; BP_SYST 93; BP_DIAS 52; PULSE 67; RESP 11; O2SAT 97
[2017-03-18 01:33] VITALS: PULSE 66
[2017-03-18] MEDS: 0.9% Sodium Chloride 1,000 ML IV SCH (02:55)
[2017-03-18 04:30] VITALS: BP 96/51; PULSE 66; RESP 11; O2SAT 96
--- NOTE | 2017-03-18 05:41 | NUR ---
P: c/o L occipital JOSE I: tylenol 325mg E: A/O, forgetful. [place]. Hearing aids at home. c/o L occiptial JOSE, 03/17 which DBs increase pain. Tylenol effective for JOSE. c/o nausea x 1, maalox effective. c/o posterior neck pain, 10/18. Warm blanket to neck and pillow adjustment effective for pain. Denying CP throughout night. Tele SR, IVCD, peak T wave. Low stable BP. Voiding in small amounts via urinal and BSC, sami.
[2017-03-18] MEDS: Sodium Chloride LOK Flush 10 mL Syringe IVFLUSH SCH (07:47)
[2017-03-18] MEDS: Pantoprazole 20 mg ER24 Tablet PO SCH (07:47)
[2017-03-18 08:00] VITALS: BP 112/53; PULSE 68; RESP 15; O2SAT 98
[2017-03-18 08:17] LABS: Mean Corpuscular Hemoglobin 30.2 pg (27.0-35.0); Mean Corpuscular Volume 92.4 fL (81-100)
[2017-03-18 08:43] VITALS: PULSE 73
--- NOTE | 2017-03-18 09:23 | PROG NOTE ---
[address] [address] PROGRESS NOTE PATIENT: ESTEFANIA FLOREZ : 1930 MR#: [id number] ADMIT: 03/17/2017 JOB ID: [id number] DATE: 03/18/2017 SUBJECTIVE: The patient feels a lot better today. His pain has subsided. He still has pain when he takes a deep breath in. His appetite is better. His overall sense of well-being is much better. OBJECTIVE: Temperature is 36.6, blood pressure is 105/60, pulse 66. Body weight is 55 kg. Head and face have normal configuration. Anicteric sclerae. Moist mucosa. Neck: Supple. No jugular venous distention or carotid bruits. Chest: Normal expansion. Lungs are clear to auscultation. Heart: The first and second heart sounds normal. No murmur or rub. Abdomen: Soft, nontender. Extremities: No clubbing, cyanosis or edema. Neurologic: Grossly intact. Monitor showed no recurrent atrial fibrillation. The patient remained in sinus rhythm since he was transferred to the unit. BLOOD TESTS: Show D-dimer less than 0.05. CBC and BMP are pending. IMPRESSION: 1. Acute pericarditis, improving. 2. Hypotension due to volume depletion, improving. 3. Single episode of atrial fibrillation, no recurrence. 4. Status post left nephrectomy in 1983. PLAN: I will treat the patient with low dose steroid with prednisone 20 mg once daily for two weeks. I would like to avoid NSAIDs due to his advanced age and single kidney. He should be on colchicine 0.6 mg twice daily for two weeks and then decrease to 0.6 mg once daily for three months. I believe that the episode of atrial fibrillation is due to pericarditis. He does not require chronic anticoagulation unless he develops recurrent atrial fibrillation in the future. [facility]
[2017-03-18 10:11] VITALS: PULSE 71
--- NOTE | 2017-03-18 11:54 | PCM.DIMED ---
Audra Ralph DO 03/18/17 1154: Discharge Instructions Date of Service Mar 18, 2017 Dates of Hospitalization Mar 17, 2017 at 00:00 Discharge Diagnosis Discharge Diagnosis Acute pericarditis, improving. Hypotension, acute, resolved Single episode of Atrial fibrillaiton, acute, resolved Elevated Creatinine, POA, resolved. Status post left nephrectomy in 1983. Hip pain, chronic. Medication Instructions Additional med instructions - Take the Colchicine 0.6mg one tablet TWICE daily for 2 weeks, then decrease to one tablet ONCE daily for the next 10 weeks (total of 3 months). - Take Prednisone 20mg one tablet once daily for 2 weeks. - Take Tylenol as needed for pain. Do not take the Naproxen or any other NSAIDs like Ibuprofen or Aleve. Diet Discharge Diet: No restrictions Activity Discharge Activity: No restrictions Call your provider Call your provider for: Fever or Chills, Shortness of breath, Chest pain, Weakness (unilateral) Patient Instructions Patient Instructions - You were found to have pericarditis, which is an inflammation of the pericardium (the fibrous sac surrounding the heart). The cause is likely to be viral. - There are a couple medications to help the inflammation. Please take the prednisone 20 mg once daily for two weeks. He should be on colchicine 0.6 mg twice daily for two weeks and then decrease to 0.6 mg once daily for three months. - If you develop diarrhea on the Colchicine, please notify your doctor immediately. - For pain, you can take Tylenol as needed for pain. Please try to avoid NSAIDs like Ibuprofen or Naproxen, which can give you kidney injury. - Please call your primary care doctor at the [place] to make an appointment in 1-2 weeks. - The irregular rhythm of your heart has resolved and no additional medication is needed at this time. - If you develop high fever, headache, nausea, vomiting, shortness of breath, or worsening chest pain, please go to the ER immediately. Follow-up Provider: [facility] Follow-up with PCP in: 1 week Cameron Little MD 03/18/17 9609: Discharge Instructions Attending's Statement The patient was seen and examined with staff. Agree with all attached documentation. Audra Ralph DO Mar 18, 2017 11:54 Cameron Little MD Mar 18, 2017 16:29
[2017-03-18] MEDS ORDERED: COLC0.6T55 PO (12:01)
[2017-03-18] MEDS ORDERED: PRE20 PO (12:01)
--- NOTE | 2017-03-18 12:11 | NUR ---
Discharge Pt D/Cd home in stable condition. New Rx/follow up and MD instructions reviewed with pt as well as written info given. Questions answered and Rx hard copies given to patient/family. PIV and TELE D/Cd. Pt picked up by sister, wheel chair used to take pt to vehicle.
--- NOTE | 2017-03-18 16:34 | NUR ---
Social Work Note: Initial Assessment/Discharge Data& Assessment: EMR reviewed. Per pt is medically ready to discharge home via POV. SW met with pt at bedside to confirm discharge plan and assess for any unmet needs, SW role explained. Discharge Planning Checklist provided. Berhane Campos is a 86 year old male admitted on 03/17/2017 for pericarditis. Per MD pt is medically improved and ready to discharge home via POV. Pt independent at baseline and independent with his self care during this hospitalization. MD does not identify concerns regarding pt capacity for self care at home. Pt lives in [place] in a mobile home alone on his sisters property and lives in [place] during the winter time. Pt does not require any DME and does not have HH or SNFhx. Pt does not have LT insurance or VA benefits but does go to the [facility] for [facility]. Pt provided with DPOA/AD paperwork to review and complete when possible. Pt sister transporting pt home this afternoon. Pt denies any other needs. No other discharge needs or MD orders identified. Plan: Per pt is medically ready to discharge home via POV. Pt denies any other needs. No other discharge needs or MD orders identified. MART Resendiz Addendum: 03/18/17 at 1639 by SHIRLENE JAMES Amended: Links added.
--- NOTE | 2017-03-18 17:46 | PCM.DC.MED ---
Discharge Summary Date of Service Mar 18, 2017 Dates of Hospitalization Date of Hospital Admission Mar 17, 2017 at 00:00 Date of Discharge: Mar 18, 2017 Providers: Admitting Physician: Gabbie Lau DO [facility]ending Physician: Cameron Little MD Diagnosis at Time of Discharge Diagnosis at Time of Discharge Acute pericarditis, improving. Hypotension, acute, resolved Single episode of Atrial fibrillaiton, acute, resolved Elevated Creatinine, POA, resolved. Status post left nephrectomy in 1983. Hip pain, chronic. Consultations Cardiology Procedures XRay, CTs & MRIs PROCEDURE: X-RAY CHEST ONE VIEW, PORTABLE IMPRESSION: 1. Possible chronic obstructive pulmonary disease. 2. No acute cardiopulmonary abnormality or interval change. Dictated by: Ricky Romero M.D. on 03/17/2017 at 9:40 ECG 12 Lead Rate 63 NSR RBBB and LPFB Cardiac Echo Impression Interpretation Summary Technically difficult study. The patient was in atrial fibrillation with heart rates between 81-140 bpm during the exam. The left ventricular cavity is small. Borderline concentric left ventricular hypertrophy with grossly normal ejection fraction. Mildly dilated right ventricle wtih normal systolic function. Moderately dilated right atrium. No obvious valvular abnormality. No pericardial effusion. Brief History Berhane is an 86 yo man with history of Hydronephrosis s/p Left Nephrectomy who presents to the ED for complaints of chest pain with deep breaths. Patient was evaluated at this ER last night for substernal CP with deep breaths also. After a thorough workup, he was discharged home with Naproxen and pepcid on suspicion of viral pericarditis. Patient reports that when he returned home, he continued to have intermittent episodes of moderate pleuritic chest pain. He also noted that the chest pain move to more of his upper left chest region and also radiated occasionally to his left shoulder. He gets somewhat short of breath due to the pain, which he is unable to qualify very well. He has never had chest pain like this prior and denies any cardiac history. He denies any recent illnesses, fevers, JOSE, diarrhea, or rashes. He did take some of his neighbor's NSAID, which helped the pain, but when the pain recurred and was more located in his upper left chest, he became worried and returned for evaluation. Prior to this, he was not taking any medications regularly. He does report a superficial laceration on his right hand for which he was taking Cephalexin since a week ago. He also notes some decrease in his energy levels and some gradual weight loss in the last few years. He currently lives in a camper at [place] and goes to [place] every winter. At the ER today, his vital signs were stable and WNL. He did have an EKG that was remarkable for old RBBB, LPFB, and non specific ST changes that was new since the EKG yesterday. Cardiology was consulted and recommended echocardiography for further assessment. Hospital Course 86 yo man with history of Hydronephrosis s/p Left Nephrectomy who presents to the ED for complaints of pleuritic CP x 2 days. Acute pericarditis, POA, improving. - Patient's presentation is suspicious for acute pericarditis, although etiology is uncertain. He had d-dimer and troponins yesterday that were both negative. His EKG today is slightly more concerning, but cardiology initially felt ST changes likely represents evolving Pericarditis. Echo cardiogram ruled out pericarditis - Troponin persistently negative - Echo shows Borderline concentric left ventricular hypertrophy with grossly normal ejection fraction.Mildly dilated right ventricle wtih normal systolic function. - Appreciate Cardiology input. - Patient was discharged on a dose steroid with prednisone 20 mg once daily for two weeks. He reports itching rash with Prednisone and was recommended to take Benadryl as needed for itching. - He should be on colchicine 0.6 mg twice daily for two weeks and then decrease to 0.6 mg once daily for three months. 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 Hypotension, acute, resolved. -1 Liter bolus improved blood pressures. - Continue NSS 100 cc/hr - Blood pressures normalized upon arrival to CCU. Single episode of Atrial fibrillaiton, acute, resolved. - 5 mg IV metoprolol is given in 3003 - New onset, tachycardia and appears to be due to his pain - Cardiology tried to start amiodarone drip, but pt converted to NSR. No indication to start anticoagulation at this point. Elevated Creatinine, POA improving -- Cr of 1.34 on admission, mildly worse from yesterday, likely due to dehydration. -- Will hydrate and continue to monitor closely due to usage of NSAIDs Hip pain, chronic, POA -acetaminophen PRN Tylenol prn fever/pain Zofran prn nausea Bowel Regimen prn constipation CODE STATUS: Full resuscitation, sisters differ with this. Sister. Iram says that she will be his POA and he will discuss CODE STATUS with patient because she feels that patient did not quite understand what CODE STATUS meant. At the present time patient is unable to answer these questions but he is okay with his family are sisters addressing this Patient is admitted under observation status with expected length of stay less than 2 midnights due to severity of presenting symptoms, risk of adverse events , and complexity of treatment plan. Exam Vital Signs (Last) Date Time Temp Pulse Resp B/P Pulse Ox O2 Delivery O2 Flow Rate FiO2 03/18/17 10:11 71 03/18/17 08:00 36.7 15 112/53 98 Room Air 03/17/17 16:30 2.00 Exam General: Thin elderly male who appears in mild pain HEENT: Normocephalic, atraumatic. External ears without defect. Pupils equal, round, and reactive to light and accommodation. Anicteric sclerae, Oropharynx free of erythema and cobble stoning with moist mucosa. Neck: Supple with full range of motion. No jugular venous distension. No bruits. Cardiovascular: Regular rate and rhythm with soft systolic murmur and soft rub over LSB Pulmonary: Clear to auscultation bilaterally with no crackles, wheezes, or rhonchi. Normal respiratory effort with no use of accessory muscles. No pain to palpation Abdomen: Bowel tones present. Soft, nontender, nondistended. No hepatosplenomegaly or masses appreciated. Extremities: No clubbing, cyanosis, edema, or lymphadenopathy appreciated. Skin: Normal temperature, turgor, and texture; no rash, ulcers, or subcutaneous nodules appreciated. Neurological: Cranial nerves grossly intact. Normal muscle strength, tone, and bulk. Normal gait, no focal weakness Psychiatric: Normal mood and affect. Alert and oriented to person, place, and time, cooperative Test 03/16/17 22:00 03/16/17 23:17 03/17/17 05:15 03/17/17 10:10 Erythrocyte Sedimentation Rate 8mm/hr (0-30) Magnesium Level 1.9mg/dL (1.6-2.6) Total Bilirubin 0.7mg/dL (0.0-1.2) Aspartate Amino Transf (AST/SGOT) 21U/L (0-50) Alanine Aminotransferase (ALT/SGPT) 13U/L (0-44) Alkaline Phosphatase 68U/L (25-160) Pro-B-Type Natriuretic Peptide 531.3pg/mL (0-486) Total Protein 7.2g/dL (6.4-8.4) Albumin 4.3g/dL (3.4-5.0) Hold [place] Top Tube Received (Received) Urine Color Yellow (YELLOW) Urine Appearance Clear (CLEAR,HAZY) Urine pH 6.0 (5.0-8.0) Urine Specific [place] 1.010 (1.003-1.035) Urine Protein Negativemg/dL (NEG,TRACE) Urine Glucose (UA) Negativemg/dL (NEGATIVE) Urine Ketones Negativemg/dL (NEGATIVE) Urine Occult Blood Negative (NEGATIVE) Urine Nitrite Negative (NEGATIVE) Urine Bilirubin Negative (NEGATIVE) Urine Urobilinogen Normalmg/dL (NORMAL) Urine Leukocyte Esterase Negative (NEGATIVE) Urine RBC 0-2/hpf (0-2) Urine WBC 0-5/hpf (0-5) Urine Epithelial Cells Occasional/hpf (NONE-MOD) Urine Crystals None seen (NONE SEEN) Urine Bacteria None/hpf (NONE-FEW) Urine Hyaline Casts None/lpf (NONE) Urine Granular Casts None seen (NONE SEEN) Urine Waxy Casts None seen (NONE SEEN) Urine Red Blood Cell Casts None seen (NONE SEEN) Urine White Blood Cell Casts None seen (NONE SEEN) Urine Mucus None seen (None Seen) Urine Trichomonas None seen (NONE SEEN) Urine Yeast None (NONE SEEN) Urinalysis Comment None Urine Culture Reflexed Not indicated Hold Urine Received (Received) Neutrophils (%) (Auto) 73.0% (40-74) Lymphocytes (%) (Auto) 12.3% (14-46) Monocytes (%) (Auto) 12.5% (4-12) Eosinophils (%) (Auto) 1.5% (0-5) Basophils (%) (Auto) 0.2% (0-3) C-Reactive Protein 5.6mg/dL (0.0-0.5) Troponin T 0.010ug/L (0.0-0.011) Test 03/17/17 11:20 03/17/17 23:36 03/18/17 08:05 D-Dimer < 0.50mg/L FEU (<0.50) Activated Partial Thromboplast Time 29.3sec (22.8-33.0) White Blood Count 5.0th/mm3 (3.8-10.1) Red Blood Count 3.97mil/mm3 (4.40-5.80) Hemoglobin 12.0g/dL (13.8-17.2) Hematocrit 36.7% (41.0-50.0) Mean Corpuscular Volume 92.4fL (81-100) Mean Corpuscular Hemoglobin 30.2pg (27.0-35.0) Mean Corpuscular Hemoglobin Concent 32.7% (32.0-37.0) Red Cell Distribution Width 14.3% (12.3-15.4) Platelet Count 154bil/L (150-400) Sodium Level 141mEq/L (134-144) Potassium Level 4.1mEq/L (3.5-5.2) Chloride Level 108mEq/L (97-108) Carbon Dioxide Level 20mmol/L (18-29) Blood Urea Nitrogen 16mg/dL (8-27) Creatinine 1.05mg/dL (0.76-1.27) Estimat Glomerular Filtration Rate 71mL/min (>59) Glucose Level 85mg/dL (60-99) Calcium Level 8.3mg/dL (8.5-10.1) Discharge Medications Discharge Medications Colchicine (Colchicine) 0.6 Mg Tablet 0.6 MG PO DAILY Take 1 tablet by oral route TWICE daily for 2 weeks, then decrease to ONCE daily for a total of 3 months. Prescribed by: AUDRA CAMACHO DO Famotidine (Famotidine) 20 Mg Tablet 20 MG PO BID (Reported) Prednisone (PredniSONE) 20 Mg Tablet 20 MG PO DAILY Prescribed by: AUDRA CAMACHO DO As needed Hydrocodone/Acetaminophen ([place] 5-325 Tablet) 1 Each Tablet 1 EACH PO Q6 PRN PRN For Pain (Reported) Additional med instructions - Take the Colchicine 0.6mg one tablet TWICE daily for 2 weeks, then decrease to one tablet ONCE daily for the next 10 weeks (total of 3 months). - Take Prednisone 20mg one tablet once daily for 2 weeks. - Take Tylenol as needed for pain. Do not take the Naproxen or any other NSAIDs like Ibuprofen or Aleve. Followup Plan Disposition: Home Discharge Diet: No restrictions Discharge Activity: No restrictions Patient Instructions - You were found to have pericarditis, which is an inflammation of the pericardium (the fibrous sac surrounding the heart). The cause is likely to be viral. - There are a couple medications to help the inflammation. Please take the prednisone 20 mg once daily for two weeks. He should be on colchicine 0.6 mg twice daily for two weeks and then decrease to 0.6 mg once daily for three months. - If you develop diarrhea on the Colchicine, please notify your doctor immediately. - For pain, you can take Tylenol as needed for pain. Please try to avoid NSAIDs like Ibuprofen or Naproxen, which can give you kidney injury. - Please call your primary care doctor at the [place] to make an appointment in 1-2 weeks. - The irregular rhythm of your heart has resolved and no additional medication is needed at this time. - If you develop high fever, headache, nausea, vomiting, shortness of breath, or worsening chest pain, please go to the ER immediately. [facility] Follow-up with PCP in: 1 week copies to: [facility] Audra Camacho DO Mar 18, 2017 12:03
== END 2017-03-18 13:30 | disposition home or self-care (01) | DRG 316 ==
LOC: SED 21:47 → OBSVTOIN 03-17 → MPC 03-17 → PCC 03-17 09:44 → CCU 03-17 10:08 → PCC 03-18 08:35
PROVIDERS: ADMIT Internal Medicine; ATTEND Internal Medicine
DX: I30.9 Acute pericarditis, unspecified (principal); G89.29 Other chronic pain; M25.559 Pain in unspecified hip; E86.0 Dehydration; I48.0 Paroxysmal atrial fibrillation; I95.89 Other hypotension; Z90.5 Acquired absence of kidney

== ENCOUNTER 2017-04-01 07:42 | Emergency (ER) | payer MEDICARE, MEDICAID ==
[~2017-04-01] VITALS: Ht 175.3 cm; Wt 54.5 kg
[~2017-04-01 07:42] MED LIST changes: +COLC0.6T55 PO; -FAMO20T PO; +FAMO20TA4 PO; -NAPR500T PO
[2017-04-01 07:46] VITALS: BP 139/69; PULSE 56; RESP 18; O2SAT 94
--- NOTE | 2017-04-01 07:56 | ED.REPORT ---
HPI-General Illness Date of Service Apr 01, 2017 ED Provider: Po Santoro DO Patient is an 86 year old male with a hx of Hydronephrosis who presents to the ED complaining of diarrhea onset yesterday. He recently started a new medication (colchicine) after being admitted for pericarditis 2 weeks ago. Associated symptoms include headache, urinary frequency, mild bilateral blurred vision, weakness, and lightheadedness. He denies fever, chills, vomiting, hematochezia, melena, rash, throat swelling, or any other symptoms. Nursing Notes Stated Complaint: POSS ALLERGIC REACTION Chief Complaint: Male Abdominal Pain Nursing Notes Reviewed: Yes Allergies: Coded Allergies: prednisone (Verified Allergy, Mild, BODY ACHES, 03/16/17) atorvastatin (Verified Adverse Reaction, Unknown, body aches, 03/16/17) Scheduled Colchicine (Colchicine) 0.6 Mg Tablet 0.6 MG PO DAILY Take 1 tablet by oral route TWICE daily for 2 weeks, then decrease to ONCE daily for a total of 3 months. Famotidine (Famotidine) 20 Mg Tablet 20 MG PO BID Scheduled PRN Hydrocodone/Acetaminophen ([place] 5-325 Tablet) 1 Each Tablet 1 EACH PO Q6 PRN PRN For Pain General Time Seen by MD: 07:53 Chief Complaint Diarrhea Hx Obtained From: Patient Arrived By: Walk-in Sudden in Onset?: Yes Onset Occurred: Yesterday Symptom Duration: Since onset Recent Healthcare: Recent doctor visit, Recent hospitalization Past Medical History Past Medical History Chronic hip pain Hydronephrosis Past Surgical History Left kidney removed in 1954 Toe surgeries Family History His father was a heavy smoker and at 53. Mother at 93. Smoking History Former Smoker Social History Alcohol Use: 1-3 per week Drug Use: Denies drug use Other Social History: Good social support, Lives alone, Local resident Ambulatory Status Independent Review of Systems Full Review of Systems Constitutional: Reports: Weakness - generalized, Denies: Chills, Fever Eyes: Reports: Blurred bilateral Ears / Nose / Throat: Denies: Throat swelling GI: Reports: Diarrhea, Denies: Hematochezia, Melena, Vomiting Male: Reports Urinary frequency Skin: Denies Rash Neurologic: Reports: Headache, Lightheaded Complete sys rev & neg: except as marked. Physical Exam Vital Signs Vital Signs Date Time Temp Pulse Resp B/P Pulse Ox O2 Delivery O2 Flow Rate FiO2 7/25/17 09:48 36.5 56 18 139/69 94 04/01/17 07:46 36.5 56 18 139/69 94 Initial VS: Reviewed Head / Eyes: Atraumatic, Normocephalic Neck: Full range of motion Respiratory: Breath sounds normal, Clear to auscultation, No respiratory distress Cardiovascular: Regular rate & rhythm, Heart sounds normal, Intact distal pulses Abdomen / GI: Soft, Non-tender Neurologic: Alert, Oriented, Nonfocal Psychiatric: Mood/affect normal, Behavior normal, Normal thought content General/Constitutional: Awake, Alert, No acute distress Appearance / Presentation: Positive: Frail Thin Skin: Color NL, No rash, Warm, Dry, No swelling Interpretation & Diagnostics Lab Results Interpretation Result Diagram: 04/01/17 0830 04/01/17 0830 Test 04/01/17 08:30 04/01/17 08:33 White Blood Count 10.6th/mm3 (3.8-10.1) Red Blood Count 4.74mil/mm3 (4.40-5.80) Hemoglobin 14.3g/dL (13.8-17.2) Hematocrit 43.3% (41.0-50.0) Mean Corpuscular Volume 91.4fL (81-100) Mean Corpuscular Hemoglobin 30.2pg (27.0-35.0) Mean Corpuscular Hemoglobin Concent 33.0% (32.0-37.0) Red Cell Distribution Width 14.2% (12.3-15.4) Platelet Count 317bil/L (150-400) Neutrophils (%) (Auto) 73.7% (40-74) Lymphocytes (%) (Auto) 12.5% (14-46) Monocytes (%) (Auto) 11.4% (4-12) Eosinophils (%) (Auto) 1.7% (0-5) Basophils (%) (Auto) 0.3% (0-3) Sodium Level 138mEq/L (134-144) Potassium Level 4.3mEq/L (3.5-5.2) Chloride Level 99mEq/L (97-108) Carbon Dioxide Level 26mmol/L (18-29) Blood Urea Nitrogen 14mg/dL (8-27) Creatinine 1.18mg/dL (0.76-1.27) Estimat Glomerular Filtration Rate 62mL/min (>59) Glucose Level 90mg/dL (60-99) Calcium Level 9.4mg/dL (8.5-10.1) Urine Color Straw (YELLOW) Urine Appearance Clear (CLEAR,HAZY) Urine pH 6.5 (5.0-8.0) Urine Specific [place] 1.010 (1.003-1.035) Urine Protein Negativemg/dL (NEG,TRACE) Urine Glucose (UA) Negativemg/dL (NEGATIVE) Urine Ketones Negativemg/dL (NEGATIVE) Urine Occult Blood Trace (NEGATIVE) Urine Nitrite Negative (NEGATIVE) Urine Bilirubin Negative (NEGATIVE) Urine Urobilinogen Normalmg/dL (NORMAL) Urine Leukocyte Esterase Negative (NEGATIVE) Urine RBC 3-10/hpf (0-2) Urine WBC 0-5/hpf (0-5) Urine Epithelial Cells Occasional/hpf (NONE-MOD) Urine Crystals None seen (NONE SEEN) Urine Bacteria None/hpf (NONE-FEW) Urine Hyaline Casts None/lpf (NONE) Urine Granular Casts None seen (NONE SEEN) Urine Waxy Casts None seen (NONE SEEN) Urine Red Blood Cell Casts None seen (NONE SEEN) Urine White Blood Cell Casts None seen (NONE SEEN) Urine Mucus None seen (None Seen) Urine Trichomonas None seen (NONE SEEN) Urine Yeast None (NONE SEEN) Urinalysis Comment None Urine Culture Reflexed Not indicated Re-Eval/Medical Decision Time of Eval: 09:43 Re-Evaluation/Progress Note: Discussed plan for discharge. Patient understands and agrees with plan. All questions addressed at this time. Counseled Regarding: Diagnosis, Lab results, Need for follow-up, When/why to return to ED Discharge & Departure Primary Impression: Adverse effects of medication Encounter type: initial encounter Qualified Code: T88.7XXA - Unspecified adverse effect of drug or medicament, initial encounter Disposition: Home Discharge Condition All VS Reviewed: Yes Condition: Stable Additional Instructions: Your diarrhea may be due to the colchicine. You can try decreasing the colchicine to once daily. Ultimately, if you decide that your diarrhea symptoms are severe, you may stop your colchicine; however there is a chance that you could develop recurrent pericarditis. Call your primary care doctor today for a close follow-up appointment. Return to the ER as needed for any concerns. Referrals: [facility] ([facility]) Felipe Attestation Portions of this note were transcribed by Oriana Moon. I, Dr. Santoro personally performed the history, physical exam and medical decision-making; I reviewed and confirmed the accuracy of the information in the transcribed note. Signed by: Felipe German, 04/01/17 at 0943 copies to: [facility] Po Santoro DO Apr 01, 2017 07:56 ORIANA MOON Apr 01, 2017 08:19
[2017-04-01] MEDS ORDERED: FAMO20TA4 PO (08:45)
[2017-04-01 08:49] LABS: BASOPHILS % (AUTO) 0.3 % (0-3); EOSINOPHILS % (AUTO) 1.7 % (0-5); MONOCYTES % (AUTO) 11.4 % (4-12); Mean Corpuscular Hemoglobin 30.2 pg (27.0-35.0); Mean Corpuscular Volume 91.4 fL (81-100); NEUTROPHILS % (AUTO) 73.7 % (40-74); Platelet Count 317 bil/L (150-400)
[2017-04-01 09:41] LABS: APPEARANCE,URINE CLEAR (CLEAR,HAZY); COLOR,URINE STRAW (YELLOW)
[2017-04-01 09:42] LABS: OCCULT BLOOD,URINE TRACE (NEGATIVE); PH,URINE 6.5 (5.0-8.0); UROBILINOGEN,URINE NORMAL (NORMAL)
[2017-04-01 09:48] VITALS: BP 139/69; PULSE 56; RESP 18; O2SAT 94
== END 2017-04-01 09:49 | disposition home or self-care (01) ==
LOC: SED 07:42
DX: R19.7 Diarrhea, unspecified (principal); R51 Headache; T50.4X5A Adverse effect of drugs affecting uric acid metabolism, initial encounter; Y93.89 Activity, other specified; Y92.89 Other specified places as the place of occurrence of the external cause; Y99.8 Other external cause status; R35.0 Frequency of micturition; Z87.891 Personal history of nicotine dependence; Z88.8 Allergy status to other drugs, medicaments and biological substances